=== PATIENT | female | born 1945 | race African-American/Black ===

== ENCOUNTER 2021-10-23 07:40 | Emergency (ER) | payer OTHER ==
[~2021-10-23] VITALS: Ht 165.1 cm; Wt 90.7 kg
[2021-10-23] MEDS ORDERED: HUMALOG100 UNIT/2 (08:04)
[2021-10-23] MEDS ORDERED: GLIMEPIRIDE2 M1 PO (08:04)
[2021-10-23] MEDS ORDERED: LASIX40 MG PO (08:04)
[2021-10-23] MEDS ORDERED: KAPVAY0.1 MG PO (08:04)
[2021-10-23] MEDS ORDERED: TOPROL XL25 M1 PO (08:05)
[2021-10-23] MEDS ORDERED: NASAL MIST126 ML (08:05)
== END 2021-10-23 18:07 | disposition home or self-care (01) ==
LOC: ER 07:40
DX: E11.65 Type 2 diabetes mellitus with hyperglycemia (principal); R55 Syncope and collapse; Z20.822 Contact with and (suspected) exposure to COVID-19; E03.9 Hypothyroidism, unspecified; I10 Essential (primary) hypertension; Z79.4 Long term (current) use of insulin